=== PATIENT | male | born 1995 | race Caucasian/White ===

== ENCOUNTER 2018-01-14 09:19 | Emergency (ER) | payer SELFPAY ==
[2018-01-14] MEDS ORDERED: EPINEPHrine 1 MG/ML INJ IM ONE (09:32)
[2018-01-14] MEDS ORDERED: RANITIDINE 50 MG/2 ML VIAL IVP ONE (09:33)
[2018-01-14] MEDS ORDERED: methylPREDNISolone SOD SUCC 125 MG/2 ML VIAL IVP ONE (09:33)
[2018-01-14] MEDS ORDERED: NS 1,000 ML IV ONE (09:34)
[2018-01-14] MEDS ORDERED: ONDANSETRON 4 MG/2 ML VIAL ONE (09:37)
[2018-01-14] MEDS ORDERED: ONDANSETRON 4 MG/2 ML VIAL IVP ONE (09:39)
[2018-01-14 12:14] VITALS: BP 131/65
--- NOTE | 2018-01-14 12:21 | EDPHY ---
H & P Smoking Status: Never smoked Time Seen by Provider: 01/14/18 09:38 HPI/ROS: CHIEF COMPLAINT: Anaphylaxis HISTORY OF PRESENT ILLNESS: 22-year-old male presents to the emergency department feeling nauseous, sweating, vomiting, itching and swelling in his face. Symptoms began about 10 min after having a fruit smoothie. He has no known food allergies or other known environmental allergies. He has had this same exact smoothie in the past without any problems. He states that he vomited 1 time prior to arrival. He feels that his tongue and his throat or swollen. He feels itchy scalp especially and was having some tightness in his chest difficulty breathing. He denies abdominal pain was feeling nauseous and did vomit. No treatment at home. No symptoms of the same in the past. No listed drug use. REVIEW OF SYSTEMS: Constitutional: No fever, no chills. Eyes: No double or blurry vision. ENT: No sore throat. Respiratory: No cough, no shortness of breath. Cardiac: No chest pain. Gastrointestinal: No abdominal pain, vomiting or diarrhea. Genitourinary: No dysuria. Musculoskeletal: No neck or back pain. Skin: No rashes. Neurological: No headache. (Amaris Gamez M) Past Medical/Surgical History: Negative (Vera,Amaris M) Social History: Single and lives with his girlfriend in [place] (Amaris Gamez M) Physical Exam: General Appearance: [Alert, Diaphoretic. Erythematous. Eyes: Pupils equal and round. Extraocular motions are all intact. ENT: Mouth: Mucous membranes moist. Uvula swollen and midline. Slightly muffled voice. Respiratory: No wheezing, rhonchi, or rales, lungs are clear to auscultation. Cardiovascular: Regular rate and rhythm. Gastrointestinal: Abdomen is soft and nontender, no masses, no rebound or guarding, bowel sounds normal. Neurological: Alert and oriented x 3, cranial nerves II through XII grossly intact Skin: Diffuse erythema noted to back, chest and abdomen as well as upper lower extremities. Erythema noted to the scalp. Musculoskeletal: Nontender to palpate along the cervical, thoracic or lumbar spine. Neck is supple. Extremities: Full range of motion and no peripheral edema. Psychiatric: Patient is oriented X 3, there is no agitation. (Rajni Gameza M) Constitutional: Initial Vital Signs Heart Rate 63 01/14/18 09:21 Respiratory Rate 20 01/14/18 09:21 Blood Pressure 125/82 H 01/14/18 09:21 O2 Sat (%) 93 01/14/18 09:21 O2 Delivery Mode Room Air O2 (L/minute) 1 Allergies/Adverse Reactions: No Known Allergies Allergy (Unverified 01/14/18 09:24) Home Medications: Medication Instructions Recorded EPINEPHrine [Epipen 0.3 MG] 0.3 mg IM ONCE #2 syr 01/14/18 predniSONE 60 mg PO DAILY 3 Days tab 01/14/18 Medical Decision Making ED Course/Re-evaluation: I was concerned about possible anaphylactic reaction in this patient. Patient had IV established and was given IV ranitidine, IV Solu-Medrol, IV Benadryl, and 0.3 mg of IM epinephrine. Patient was also given 4 mg of Zofran for nausea. He received IV normal saline. The case was discussed with Dr. Monika El, secondary supervising physician, who also evaluated the patient. Patient was serially re-examined. The patient was monitored for over 3 hr in the emergency department. He had no recurring swelling or rash. No recurring vomiting. He was feeling much better. He is drinking water. He will be discharged home with EpiPen and prednisone. 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 He was instructed to return to the emergency department if he had any recurring symptoms or any other concerns. (Amaris Gamez) I have evaluated and participated in the management of this patient. My co- signature indicates that I have reviewed this chart and that I agree with the findings and the plan of care as documented. My personal history and physical findings include: 22-year-old male who developed diffuse flushing, facial swelling, nausea and vomiting, and diaphoresis after drinking a fruit smoothie. He has no known food allergies. His presentation was suggestive of anaphylaxis and was treated as such. I evaluated him after he had received epinephrine, Benadryl, and steroids. There was no oral pharyngeal swelling, no wheezing, and no hypotension. Heart had a regular rate and rhythm lungs were clear. Abdomen was soft and nontender. He was alert and fully oriented. No hives were noted but is skin was diffusely erythematous. He was observed in the emergency department for approximately 3 hr during which time he remained stable. (Monika El) Differential Diagnosis: Including but not limited to anaphylaxis, acute allergic reaction, angioedema ( Amaris Gamez) - Data Points Medications Given: Discontinued Medications Diphenhydramine HCl (Benadryl Injection) 50 mg IVP EDNOW ONE Stop: 01/14/18 09:34 Last Admin: 01/14/18 09:40 Dose: 50 mg Epinephrine HCl (Epinephrine) 0.3 mg IM EDNOW ONE Stop: 01/14/18 09:33 Last Admin: 01/14/18 09:41 Dose: 0.3 mg Sodium Chloride (Ns) 1,000 mls @ 0 mls/hr IV EDNOW ONE; Wide Open PRN Reason: Protocol Stop: 01/14/18 09:35 Last Admin: 01/14/18 09:39 Dose: 1,000 mls Methylprednisolone Sodium Succinate (Solu-Medrol) 125 mg IVP EDNOW ONE Stop: 01/14/18 09:34 Last Admin: 01/14/18 09:40 Dose: 125 mg Ondansetron HCl (Zofran) 4 mg IVP EDNOW ONE Stop: 01/14/18 09:40 Last Admin: 01/14/18 09:42 Dose: 4 mg Ranitidine HCl (Zantac) 50 mg IVP EDNOW ONE Stop: 01/14/18 09:34 Last Admin: 01/14/18 09:41 Dose: 50 mg Departure - Departure Disposition: Home, Routine, Self-Care Clinical Impression: Acute anaphylaxis Condition: Good Instructions: Anaphylaxis (ED) Additional Instructions: EpiPen as directed. Benadryl 50mg every 6 hours as needed for symptoms of itching. Ranitidine, Zantac, [id number] twice daily for symptoms of rash or itching. Prednisone daily for 3 days. Follow up with [employer] wafers etcher stripper as discussed. Return to the emergency department if you develop any recurring swelling in your throat, recurring vomiting, rash, or if you feel worse in any way. Referrals: Yesenia Piper MD [[facility] [place] Primary Care Provider] - As per Instructions Valeriy Ríos DO [Doctor of Osteopathy] - As per Instructions Stand Alone Forms: School Excuse Prescriptions: EPINEPHrine [Epipen 0.3 MG] 0.3 mg IM ONCE #2 syr predniSONE 60 mg PO DAILY 3 Days tab
== END 2018-01-14 12:50 | disposition home or self-care (01) ==
DX: T78.00XA Anaphylactic reaction due to unspecified food, initial encounter (principal)
CPT/HCPCS: 96374; J2405